=== PATIENT | female | born 1995 | race Caucasian/White ===

== ENCOUNTER 2016-07-21 23:30 | Outpatient (CLI) | payer OTHER ==
[~2016-07-21] VITALS: Ht 170.2 cm; Wt 101.0 kg
[2016-07-21 23:53] VITALS: BP 126/67
[2016-07-21 23:56] VITALS: BP 126/67
[2016-07-22 03:20] VITALS: BP 121/68
[2016-07-22] MEDS ORDERED: PRENTAB9 PO (05:26)
[2016-07-22] MEDS ORDERED: TUMS500C PO (05:27)
== END 2016-07-22 07:52 | disposition home or self-care (01) ==
LOC: M LDO 23:30
PROVIDERS: ATTEND Obstetrics & Gynecology
DX: O47.03 False labor before 37 completed weeks of gestation, third trimester (principal); Z3A.35 35 weeks gestation of pregnancy

== ENCOUNTER 2016-08-14 22:04 | Inpatient (IN) | payer OTHER ==
[~2016-08-14 22:04] MED LIST: PRENTAB9 PO; TUMS500C PO
[2016-08-14 22:18] VITALS: BP 132/72
[2016-08-14] MEDS ORDERED: LACTATED RINGER'S 1000 ML IV STA (22:52)
[2016-08-14] MEDS ORDERED: LR 1,000 ML IV SCH (22:52)
[2016-08-14] MEDS ORDERED: AMPICILLIN SOD 2 GM in D5W MINI-BAG PLUS 100 ML IV STA (22:52)
--- NOTE | 2016-08-14 23:04 | HPEPDOC ---
Obstetrical History & Physical General Date of Admission Aug 14, 2016 at 22:52 History of Present Illness Florencio is a 21yo with SIUP at 39w1d presenting with leakage of clear fluid at 2130. Feeling regular ctx q2-3min, no vaginal bleeding. Feels good movement. No fevers/chills. PMhx: benign course: GBS positive by urine, incidental proteinuria (24hr UP 378mg) with NO dx of GHTN, excessive weight gain (56#) Chief Complaint: Contractions, term, LOF, term Information Provided By: Patient Care Care: Good Care Dating Final EDC: Aug 20, 2016 Final EDC by: LMP Antepartum Course Diagnos(e)s GBS positive by urine, incidental proteinuria (24hr UP 378mg) with NO dx of GHTN Height (inches): 66 Pre- weight (lbs.): 178 Admission Weight (lbs.): 234 Change in Weight (lbs.): 56 Past Medical History Past Obstetrical History : Past Obstetrical History: [employer]img[employer] History: No pertinent history Past Medical History Medical History Benign Surgical History: Gallbladder, [place] teeth Family History Significant Family History: No pertinent family hx Social History Marital Status: Family situation: Spouse/partner home Psychosocial History: No pertinent psych hx * Smoker: non-smoker Alcohol: Denies Drugs: denies Imunizations Tdap status: current Influenza Status: current Allergies Coded Allergies: No Known Allergies (Unverified , 07/07/15) Medications Scheduled Multivitamins/ ( 27-0.8 mg) 1 Tab Tab, 1 TAB PO DAILY Miscellaneous Medications Calcium Carbonate (Tums) 500 Mg Chw, 500 MG PO Physical Examination Physical Examination GENERAL: Alert and oriented times three. ABDOMEN: Gravid and non-tender to touch. FETUS: Is vertex (VTX) by sterile vaginal examination (SVE) EXTREMITIES: trace edema of BLE Other physical findings Nitrazine positive, grossly ruptured with clear fluid containing vernix Pertinent Laboratoy Data Blood Type: A+ RBC Antibody Screen: Negative HIV: Negative Hepatitis B: Negative Hepatitis C: Unknown Rapid Plasma Reagin: Nonreactive Rubella: Immune Varicella: Immune Chlamydia/Gonorrhea: Negative Group B Streptococcus: Positive Cystic Fibrosis: Negative Glucose Tolerance Test: 94 Anatomy Ultrasound Ultrasound Date: Apr 10, 2016 Placenta Location: Anterior Normal Anatomy: Yes Placenta Previa: No Steroid Therapy Steroid Therapy: No Vaginal Examination Dilation: 4 cm Effacement: 80+% Station: -2 Cervical Consistency: Soft Cervical Position: Anterior Presentation: Cephalic presentation Assessment Heart Rate (FHR): 130 Variability: Moderate Accelerations: Positive Decelerations: None Tocometer Contractions: Yes Frequency: regular, every 2-5 min. Duration: greater than 60 seconds Strength: palpated as moderate Assessment/Plan Assessment Florencio is a 21yo with SIUP at 39w1d presenting with SROM at 2130. Grossly ruptured with clear fluid containing vernix, nitrazine positive. SCE 3-4/80/-2. Cat I FHRT, toco ctx q2-3min. EFW 3800g by Neal's. Cephalic by SCE. Normotensive. Benign exam. PMhx: benign course: GBS positive by urine, incidental proteinuria (24hr UP 378mg) with NO dx of GHTN, excessive weight gain (56#) Plan Admit and orient. Offal Baler and consent. Diet: clear liquids Group B Streptococcus (GBS) positive: ampicillin per protocol Labs and intravenous (IV) per unit protocol. Lactated Ringers (LR): Bolus 1000 mL, then at 125 mL/hr. Anticipate normal spontaneous delivery () C-S as appropriate. MD SHANIQUE Gongora KATRINA D. MD Aug 14, 2016 23:04
[2016-08-14 23:11] LABS: MEAN CORPUSCULAR HEMOGLOBIN 30.3 pg (27.0-33.0); MEAN CORPUSCULAR HGB CONC 32.7 g/dl (32.0-36.5); MEAN CORPUSCULAR VOLUME 92.6 fl (80.0-96.0); RED CELL DISTRIBUTION WIDTH 12.8 % (11.5-14.5); WHITE BLOOD COUNT 10.5 K/mm3 (4.0-10.0)
[2016-08-14] MEDS ORDERED: FENTANYL 2MCG/ML ROPIVACAINE 0.2% IN 0.9% NACL 200ML IVBAG As Ordered ONE (23:35)
[2016-08-14 23:44] VITALS: BP 131/60
[2016-08-14 23:49] VITALS: BP 115/64
[2016-08-14 23:52] VITALS: BP 119/69
[2016-08-14 23:57] VITALS: BP 116/62
[2016-08-15] VITALS (33 sets, daily range): BP systolic 94–156; BP diastolic 49–79
[2016-08-15] MEDS ORDERED: ONDANSETRON 4MG/2ML VIAL (J2405) IV PRN ×3 (00:30→07:15)
[2016-08-15] MEDS ORDERED: FENTANYL/ROPIVACAINE/NACL BAG 200 ML EPIDURAL SCH (00:30)
[2016-08-15] MEDS ORDERED: LACTATED RINGER'S 1000 ML IV PRN (00:30)
[2016-08-15] MEDS ORDERED: REFRIGERATOR IV KEYS XX PRN (00:30)
[2016-08-15] MEDS ORDERED: ePHEDrine SULFATE 25 MG/5 ML(5MG/ML) SYRINGE IV PRN (00:30)
[2016-08-15] MEDS ORDERED: EPIDURAL COMMENT XX SCH (00:30)
[2016-08-15] MEDS ORDERED: diphenhydrAMINE INJ 50MG/ML VIAL (J1200) IV PRN (00:30)
[2016-08-15] MEDS ORDERED: NALOXONE INJ 0.4 MG/1 ML VIAL (J2310) IV PRN ×3 (00:30→05:40)
[2016-08-15] MEDS ORDERED: EPIDURAL/PCA KEYS XX PRN (00:30)
[2016-08-15] MEDS ORDERED: TERBUTALINE SULFATE 1 MG/ML VIAL (J3105) SC ONE (02:30)
--- NOTE | 2016-08-15 02:33 | IPNPDOC ---
Text Note Date of Service The patient was seen on 08/15/16. NOTE Patient now comfortable with epidural. RN has her on left lateral side, O2 mask on, has had IVF boluses, but having shallow late decelerations with continued good variability. RN check /-2. Ctx q2min. Going to OR with another patient, will give dose of SQ terbutaline in meantime to try to resolve late decelerations. Dr. Vi Ng MD VS,Aleksey, I+O VS, Aleksey, I+O Laboratory Tests 08/14/16 23:04 Red Blood Count 3.44 L, Mean Corpuscular Volume 92.6, Mean Corpuscular Hemoglobin 30.3, Mean Corpuscular Hemoglobin Concent 32.7, Red Cell Distribution Width 12.8 VI NG MD Aug 15, 2016 02:33
[2016-08-15] MEDS ORDERED: AMPICILLIN SOD 1 GM in D5W MINI-BAG PLUS 50 ML IV SCH (03:00)
--- NOTE | 2016-08-15 03:03 | IPNPDOC ---
Text Note Date of Service The patient was seen on 08/15/16. NOTE Patient comfortable with epidural. Still Cat II tracing with recurrent shallow late decelerations and now tachycardia, mod lisseth. Has O2 on, received IVF boluses, left lateral positioning. SCE 6-7/80/-2, clear fluid still. IUPC and FSE placed. Good accels with FSE placement. Plan for amnio-infusion of 500ml. 1 dose terbutaline given with some spacing of ctx. Going to OR with other patient, will continue to observe closely. Dr. Vi Ng MD VS,Aleksey, I+O VS, Aleksey, I+O Laboratory Tests 08/14/16 23:04 Red Blood Count 3.44 L, Mean Corpuscular Volume 92.6, Mean Corpuscular Hemoglobin 30.3, Mean Corpuscular Hemoglobin Concent 32.7, Red Cell Distribution Width 12.8 VI NG MD Aug 15, 2016 03:03
--- NOTE | 2016-08-15 04:35 | IPNPDOC ---
Text Note Date of Service The patient was seen on 08/15/16. NOTE Pt re-evaluated after finishing for prior patient. Continued Cat II tracing now losing variability. SCE / Pt counseled/consented for PLTCS for NRFHT. Consent form signed. Team aware. Will proceed when OR clean and ready. IV anceph 2g and azithromycin 500mg for prophylaxis. Dr. Vi Ng MD VS,Aleksey, I+O VS, Aleksey, I+O Laboratory Tests 08/14/16 23:04 Red Blood Count 3.44 L, Mean Corpuscular Volume 92.6, Mean Corpuscular Hemoglobin 30.3, Mean Corpuscular Hemoglobin Concent 32.7, Red Cell Distribution Width 12.8 VI NG MD Aug 15, 2016 04:35
[2016-08-15] MEDS ORDERED: BICITRA 30ML SOLN UDC PO ONE (04:45)
[2016-08-15] MEDS ORDERED: AZITHROMYCIN INJ 500 MG, VIAL MATE ADAPTER 1 EACH in D5W 250 ML IV ONE (04:45)
[2016-08-15] MEDS ORDERED: PHENYLephrine HCL 500 MCG/5 ML (100MCG/ML) SYRINGE (J2370) As Ordered ONE (05:11)
[2016-08-15] MEDS ORDERED: KETOROLAC 60 MG/2 ML VIAL (J1885) As Ordered ONE (05:11)
[2016-08-15] MEDS ORDERED: OXYTOCIN INJ 10 UNITS/ML VIAL (J2590) As Ordered ONE (05:11)
[2016-08-15] MEDS ORDERED: LIDOCAINE 2% W/EPIN INJ 20ML **PRES FREE As Ordered ONE (05:11)
[2016-08-15] MEDS ORDERED: ONDANSETRON 4MG/2ML VIAL (J2405) As Ordered ONE (05:11)
[2016-08-15] MEDS ORDERED: MORPHINE PRES-FREE INJ 10 MG/10 ML VIAL (J2274) As Ordered ONE (05:11)
[2016-08-15 05:31] LABS: CORD GAS ABE V -7.8; CORD GAS HCO3 V 21.9 MEQ/L; CORD GAS O2 SAT V 41.7 %; CORD GAS PCO2 V 61.1 mmHg; CORD GAS PH V 7.172 UNITS; CORD GAS PO2 V 23.3 mmHg; CORD GAS SBC V 16.9 MEQ/L; CORD GAS TCO2 V 23.8 MEQ/L
[2016-08-15 05:34] LABS: CORD GAS ABE A -5.7; CORD GAS HCO3 A 26.4 MEQ/L; CORD GAS O2 SAT A < 15.0 %; CORD GAS PCO2 A 84.6 mmHg; CORD GAS PH A 7.112 UNITS; CORD GAS PO2 A 13.7 mmHg
[2016-08-15] MEDS ORDERED: METOCLOPRAMIDE INJ 10MG/2ML VIAL (J2765) IV PRN ×2 (05:40→07:15)
[2016-08-15] MEDS ORDERED: NALBUPHINE HCL 10 MG/ML AMP (J2300) IV PRN (05:40)
[2016-08-15] MEDS ORDERED: MEPERIDINE 50 MG/ML 1ML VIAL (J2175) As Ordered ONE (05:53)
[2016-08-15] MEDS ORDERED: RHOGAM 300 MCG (1500 IU) INJ (J2790) IM SCH (06:15)
[2016-08-15] MEDS ORDERED: MEASLES,MUMPS,RUBELLA VACCINE INJ (MMR-II) (90707) SC SCH (06:15)
[2016-08-15] MEDS ORDERED: PERCOCET 5MG/325MG TAB PO PRN (06:15)
[2016-08-15] MEDS: LR 1,000 ML IV SCH ×3 (06:15→22:15)
[2016-08-15] MEDS ORDERED: KETOROLAC 30 MG/ML VIAL (J1885) IV PRN (07:15)
[2016-08-15] MEDS ORDERED: fentaNYL 100 MCG/2 ML INJECTION (J3010) IV PRN (07:15)
[2016-08-15] MEDS ORDERED: LR 1,000 ML IV SCH (07:15)
[2016-08-15] MEDS: PRENATAL VITAMIN TAB PO SCH (08:24)
[2016-08-15] MEDS: DOCUSATE SODIUM 100 MG CAP PO SCH ×2 (08:24→21:00)
[2016-08-15] MEDS: AMPICILLIN SOD/SULBACTAM SOD 3 GM in D5W MINI-BAG PLUS 100 ML IV SCH ×3 (08:34→21:00)
--- NOTE | 2016-08-15 09:35 | RO ---
DATE OF OPERATION: 08/15/2016 INDICATION FOR OPERATION: Florencio is a 21-year-old G1, now P1-0-0-1, who presented at 39 weeks 2 days with spontaneous rupture of membranes in active labor. She experienced a nonreassuring heart tracing, remote from delivery, that was resistant to all resuscitative efforts, with persistent late decelerations in the heart rate, along with a loss of variability over time, and she was counseled for section. PREOPERATIVE DIAGNOSES: 1. Term intrauterine with spontaneous rupture of membranes/active labor. 2. Nonreassuring heart tracing, remote from delivery. POSTOPERATIVE DIAGNOSES: 1. Term intrauterine with spontaneous rupture of membranes/active labor. 2. Nonreassuring heart tracing, remote from delivery. 3. Delivered. MATERIAL FORWARDED TO THE LABORATORY FOR EXAMINATION: Cord gases: pH arterial 7.112, base excess -5.7, pH venous 7.172, base excess -7.8. STAFF SURGEON: Katrina Ng MD [employer] PLANS STAFF OFFICER: Katja Chaudhry CNM CLINICAL SERVICE: Obstetrics. ANESTHESIA: epidural DESCRIPTION AND FINDINGS: Clear fluid noted on entry into the uterus. Male infant in cephalic presentation. Weight 9 pounds 7 ounces or 4268 grams. scores 8 and 9. Normal-appearing uterus, fallopian tubes, and ovaries. INFECTION CLASSIFICATION: 2. ESTIMATED BLOOD LOSS: 600 mL. INTRAVENOUS (IV) FLUIDS: 1200 mL of lactated Ringer. URINE OUTPUT: 100 mL of clear yellow urine. OPERATION PERFORMED: Primary low transverse section. DESCRIPTION OF OPERATION: After obtaining informed consent, Florencio was taken to the operating room. She previously had epidural and was comfortable. Ramirez was in place. Bilateral sequential compression devices were placed, and she was prepped and draped in normal sterile fashion in the dorsal supine position with a left lateral tilt. Time-out was performed to confirm patient name, date of , procedure, and indication; the nursing, surgical staff, and anesthesia were all in agreement. She received 2 grams of intravenous (IV) Ancef and 500 mg of azithromycin IV prophylactically. Epidural anesthesia was found to be adequate using an Allis clamp. A Pfannenstiel skin incision was made with a scalpel and carried through to the underlying layer of fascia. The fascia was incised in the midline, and the incision was extended laterally with the Menchaca scissors. Superior and inferior aspects of the fascial incision were grasped with Kinga clamps, elevated, and the underlying rectus muscles were dissected off bluntly and sharply. Peritoneum was entered digitally, and the rectus muscles were in the midline. The peritoneal incision was extended superiorly and inferiorly with good visualization of the bladder. Bladder blade was inserted, and the vesicouterine peritoneum was identified, grasped with pickups, and entered sharply with the Metzenbaum scissors. The incision was then extended laterally, and the bladder flap was created digitally. Bladder blade was reinserted, and the lower uterine segment was scored in a transverse fashion with a scalpel. The uterus was entered bluntly, and the incision was extended with traction. Bladder blade was removed, and the infant's head was elevated to the level of the incision. Fundal pressure was applied, and the head was delivered atraumatically in the occipitoanterior (OA) position. Anterior shoulder, posterior shoulder, and corpus were delivered without difficulty. Nose and mouth were suctioned with bulb suction, and cord was clamped times two and cut. The was handed off to the awaiting flute teacher, Dr. Fam. Cord gases were obtained. Placenta was removed with firm traction on the cord and uterine massage. The uterus was exteriorized and cleared of all clot and debris. The uterine incision was repaired with #0 Vicryl suture in a running locking fashion, and a second layer of #0 Monocryl suture was used to close the hysterotomy incision in an imbricating fashion. The uterine incision was inspected, and hemostasis was noted. The posterior cul-de-sac was irrigated, and the uterus was returned to the abdomen. The gutters were cleared of all clot and hemostasis noted. The peritoneum was closed using a #3-0 Vicryl suture in a running fashion. The fascia was reapproximated with #0 Vicryl suture in a running fashion. Subcutaneous tissue was copiously irrigated. Mike's fascia was reapproximated using #3-0 Vicryl suture in a running fashion. Skin edges were reapproximated using #4-0 Monocryl suture. The incision was cleaned using a wet lap, dried with a dry lap. Steri-Strips were applied in the usual fashion perpendicular to the Pfannenstiel incision, and a pressure dressing was applied over the top. Surgical drapes were removed. The vagina was cleared of all blood clot without active bleeding noted. The fundus was firm at U-2 cm. All counts were correct times two. The procedure was without complications. The patient tolerated the procedure well. She was taken to the recovery room on labor and delivery in stable condition. Notably, the nurse called me from postanesthesia care unit (PACU) to inform me that the patient had a fever of 101 Fahrenheit. I ordered IV Unasyn 3 grams IV q6h, and she will receive this until 48 hours after surgery. PAIGE
[2016-08-15] MEDS: PERCOCET 5MG/325MG TAB PO PRN (11:09)
[2016-08-15] MEDS: KETOROLAC 30 MG/ML VIAL (J1885) IV SCH ×2 (12:31→18:15)
[2016-08-16] MEDS: KETOROLAC 30 MG/ML VIAL (J1885) IV SCH ×2 (00:30→06:19)
[2016-08-16 02:13] VITALS: BP 118/51
[2016-08-16] MEDS: AMPICILLIN SOD/SULBACTAM SOD 3 GM in D5W MINI-BAG PLUS 100 ML IV SCH ×4 (03:07→21:55)
[2016-08-16 05:34] VITALS: BP 119/59
[2016-08-16] MEDS: LR 1,000 ML IV SCH (06:15)
[2016-08-16 07:31] LABS: MEAN CORPUSCULAR HEMOGLOBIN 31.2 pg (27.0-33.0); MEAN CORPUSCULAR HGB CONC 33.2 g/dl (32.0-36.5); RED CELL DISTRIBUTION WIDTH 13.2 % (11.5-14.5); WHITE BLOOD COUNT 17.4 K/mm3 (4.0-10.0)
[2016-08-16] MEDS: DOCUSATE SODIUM 100 MG CAP PO SCH ×2 (09:19→21:56)
[2016-08-16] MEDS: PRENATAL VITAMIN TAB PO SCH (09:19)
[2016-08-16 10:00] VITALS: BP 137/60
[2016-08-16] MEDS ORDERED: SLF 3 ML SYR IV PRN (10:15)
[2016-08-16] MEDS: IBUPROFEN 800 MG TAB PO SCH ×2 (13:03→21:56)
[2016-08-16] MEDS: PERCOCET 5MG/325MG TAB PO PRN ×2 (14:01→23:47)
[2016-08-16] MEDS: SLF 3 ML SYR IV SCH ×2 (15:48→21:56)
--- NOTE | 2016-08-16 17:05 | IPNPDOC ---
Progress Note Date of Service The patient was seen on 08/16/16 at 17:00. Progress Note Florencio is a 21yo [id number] doing well on POD 1 s/p uncomplicated PLTCS for NRFHT remote from delivery. 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 She has minimal pain. Lochia normal. Baby is in the NICU for respiratory support, patient is breast pumping. Ambulating easily, no problems with voiding, tolerating regular diet. Denies f/c/n/v/SOB/CP. Vitals wnl, afebrile (last fever 100.5 at 0815 on 08/15) General: WDWN, resting comfortably Cardiac: S1S2 present, no murmurs Lungs: CTAB Abdomen: soft, appropriately tender, fundus firm at u-2cm, pfannensteil incision is clean/dry/intact with no erythema/induration/dehiscence Extremities: 1+ pitting edema of BLE Labs: pre-op H/H 10.4/31.9 post-op H/H 8.3/24.9 Assessment: Florencio is a 21yo [id number] doing well on POD 1 s/p uncomplicated PLTCS for NRFHT remote from delivery. Vitals wnl, afebrile x24hr, exam benign. Appropriate change in H/H. Hemodynamically stable. Plan: -Routine post-op care -Continue Unasyn 3g IV q6hr for 48hr after delivery -percocet and motrin prn pain -regular diet -encourage breast pumping ambulation and use of IS -possible discharge home tomorrow vs Friday Dr. Vi Ng MD VS, I&O, 24H, Fishbone Vital Signs/I&O Vital Signs Date Time Temp Pulse Resp B/P (MAP) Pulse Ox O2 Delivery O2 Flow Rate FiO2 08/16/16 14:35 20 08/16/16 10:00 97.7 113 137/60 (85) 100 Room Air I&O- Last 24 Hours up to 6 AM 08/16/16 06:00 Intake Total 2100 ml Output Total 4700 ml Balance -2600 ml Laboratory Data CBC/BMP Laboratory Tests 08/16/16 06:49 Red Blood Count 2.64 L, Mean Corpuscular Volume 94.0, Mean Corpuscular Hemoglobin 31.2, Mean Corpuscular Hemoglobin Concent 33.2, Red Cell Distribution Width 13.2 VI NG MD Aug 16, 2016 17:05
[2016-08-16 18:11] VITALS: BP 137/78
[2016-08-16 18:30] VITALS: BP 137/71
[2016-08-16 22:54] VITALS: BP 120/58
[2016-08-17] MEDS: SLF 3 ML SYR IV SCH (03:17)
[2016-08-17] MEDS: AMPICILLIN SOD/SULBACTAM SOD 3 GM in D5W MINI-BAG PLUS 100 ML IV SCH (03:17)
[2016-08-17] MEDS: IBUPROFEN 800 MG TAB PO SCH ×3 (05:55→21:18)
[2016-08-17 06:02] VITALS: BP 113/54
[2016-08-17] MEDS: PRENATAL VITAMIN TAB PO SCH (09:00)
[2016-08-17] MEDS: DOCUSATE SODIUM 100 MG CAP PO SCH ×2 (09:00→21:18)
--- NOTE | 2016-08-17 11:08 | IPNPDOC ---
Progress Note Date of Service The patient was seen on 08/17/16 at 11:06. Progress Note Florencio is a 21yo [id number] doing well on POD 2 s/p uncomplicated PLTCS for NRFHT remote from delivery. 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 She has minimal pain. Lochia normal. Baby is still in the NICU for respiratory support/chorio workup and patient is breast pumping. Ambulating easily, no problems with voiding, tolerating regular diet. Denies f/c/n/v/SOB/CP. Vitals wnl, afebrile (last fever 100.5 at 0815 on 08/15) General: WDWN, resting comfortably Abdomen: soft, appropriately tender, fundus firm at u-2cm, pfannensteil incision is clean/dry/intact with no erythema/induration/dehiscence Extremities: 1+ pitting edema of BLE Labs: pre-op H/H 10.4/31.9 post-op H/H 8.3/24.9 Assessment: Florencio is a 21yo [id number] doing well on POD 2 s/p uncomplicated PLTCS for NRFHT remote from delivery. Vitals wnl, afebrile x48hr, exam benign. Appropriate change in H/H. Hemodynamically stable. Baby still in NICU for respiratory support/chorio workup. Plan: -Routine post-op care -Unasyn discontinued this morning, 48hr after surgery. Will continue to observe another 24hr to ensure remains afebrile. -percocet and motrin prn pain -regular diet -encourage breast pumping ambulation and use of IS -possible discharge home tomorrow Dr. Vi Ng MD VS, I&O, 24H, Fishbone Vital Signs/I&O Vital Signs Date Time Temp Pulse Resp B/P (MAP) Pulse Ox O2 Delivery O2 Flow Rate FiO2 08/17/16 06:02 98.5 88 16 113/54 (73) 08/16/16 23:47 Room Air 08/16/16 10:00 100 I&O- Last 24 Hours up to 6 AM 08/17/16 06:00 Intake Total 200 ml Balance 200 ml VI NG MD Aug 17, 2016 11:08
[2016-08-17 18:00] VITALS: BP 132/64
[2016-08-18] MEDS: PERCOCET 5MG/325MG TAB PO PRN
[2016-08-18] MEDS: IBUPROFEN 800 MG TAB PO SCH ×2 (05:58→12:44)
[2016-08-18 06:00] VITALS: BP_SYST 110; BP_SYST 128; BP_DIAS 63; BP_DIAS 65
[2016-08-18] MEDS: DOCUSATE SODIUM 100 MG CAP PO SCH (08:55)
[2016-08-18] MEDS: PRENATAL VITAMIN TAB PO SCH (08:55)
[2016-08-18] MEDS ORDERED: COLA100C3 PO (09:16)
[2016-08-18] MEDS ORDERED: IBUP-1114 PO (09:16)
[2016-08-18] MEDS ORDERED: OXYC1TAB23 PO (09:17)
== END 2016-08-18 13:20 | disposition home or self-care (01) | DRG 765 ==
LOC: M LDO 22:04 → M LDI 22:52 → M OBS 08-15 06:01
PROVIDERS: ADMIT Obstetrics & Gynecology; ATTEND Obstetrics & Gynecology
PROC: 10D00Z1 Extraction of Products of Conception, Low, Open Approach (ICD-10-PCS; principal; 2016-08-15)
DX: O99.824 Streptococcus B carrier state complicating childbirth (principal); O41.1230 Chorioamnionitis, third trimester, not applicable or unspecified; Z3A.39 39 weeks gestation of pregnancy; O26.03 Excessive weight gain in pregnancy, third trimester; O76 Abnormality in fetal heart rate and rhythm complicating labor and delivery; Z37.0 Single live birth